=== PATIENT | male | born 1995 | race Caucasian/White ===

== ENCOUNTER 2018-01-27 15:08 | Emergency (ER) | payer OTHER ==
[~2018-01-27] VITALS: Ht 188 cm; Wt 86.4 kg
[2018-01-27 15:11] VITALS: TEMP 97.7
[2018-01-27] MEDS ORDERED: ABSORICA10 MG PO (15:36)
[2018-01-27 16:06] VITALS: BP 132/72; PULSE 69
== END 2018-01-27 16:07 | disposition home or self-care (01) ==
LOC: COL.ER 15:08
DX: L30.9 Dermatitis, unspecified (principal); T63.301A Toxic effect of unspecified spider venom, accidental (unintentional), initial encounter